=== PATIENT | male | born 1945 | race Caucasian/White ===

== ENCOUNTER 2016-07-27 07:10 | Day surgery (SDC) | payer OTHER ==
[~2016-07-27] VITALS: Ht 170.2 cm; Wt 71.4 kg
[~2016-07-27 07:10] MED LIST: ADV500 IH; ASCO-360 PO; BACL10TA PO; DOCU250C21 PO; ESCI20TA PO; FAMO20 PO; IPRA4AER IH; MONT10TA21 PO; MULT-248 PO; NAPR500T3 PO; PERCT10 PO; PRED10 PO
[2016-07-27] MEDS ORDERED: SODIUM CHLORIDE 0.9% 1,000 ML IV ONE ×2 (07:26→07:30)
[2016-07-27] MEDS ORDERED: MIDAZOLAM HCL 2 MG/2 ML VIAL ONE (07:52)
[2016-07-27] MEDS ORDERED: FentaNYL CITRATE-PF 100 MCG/2 ML VIAL ONE (07:52)
[2016-07-27] MEDS ORDERED: MethylPREDNISolone SOD SUCC 125 MG/2 ML VIAL IVP ONE (09:15)
[2016-07-27] MEDS ORDERED: MethylPREDNISolone SOD SUCC 125 MG/2 ML VIAL ONE (09:47)
[2016-07-27] MEDS ORDERED: LIDOCAINE HCL 4% 50 ML SOLUTION TP ONE (16:30)
[2016-07-27] MEDS ORDERED: ALBUTEROL SULFATE 2.5 MG/0.5 ML NEB SOLUTION NEB ONE (16:30)
[2016-07-27] MEDS ORDERED: LIDOCAINE HCL 2% 30 ML JELLY TP ONE (16:30)
[2016-07-27] MEDS ORDERED: BENZOCAINE 20% 50 MCG/SPRAY 57 GM TP ONE (16:30)
[2016-07-27] MEDS ORDERED: OXYGEN THERAPY IH SCH (20:00)
== END 2016-07-27 11:00 | disposition home or self-care (01) ==
LOC: SURGERY 07:10
PROVIDERS: ATTEND Internal Medicine Critical Care Medicine
DX: J47.9 Bronchiectasis, uncomplicated (principal); R91.1 Solitary pulmonary nodule
CPT/HCPCS: 31623; 31624; 71010; 87015 ×2; 87070; 87101; 87147; 87205; 87220; 88108; 88312; 94640; J2250; J2930; J3010; J7030

== ENCOUNTER 2022-07-20 07:26 | Day surgery (SDC) | payer OTHER ==
[~2022-07-20] VITALS: Ht 182.9 cm; Wt 70.4 kg
[~2022-07-20 07:26] MED LIST changes: +DOCU-378 PO; -DOCU250C21 PO; -ESCI20TA PO; +ESCI20TA87 PO; +MONT-35 PO; -MONT10TA21 PO; +NAPR-1024 PO; -NAPR500T3 PO; +PRED-729 PO; -PRED10 PO
[2022-07-20] MEDS ORDERED: LIDOCAINE 2% 11 ML JELLY TP ONE (07:27)
[2022-07-20] MEDS ORDERED: LIDOCAINE 4% 50 ML SOLUTION TP ONE (07:27)
[2022-07-20] MEDS ORDERED: BENZOCAINE 20% 50 MCG/SPRAY 57 GM TP ONE (07:27)
[2022-07-20] MEDS ORDERED: SODIUM CHLORIDE 0.9% 1,000 ML ONE (07:31)
[2022-07-20] MEDS ORDERED: FentaNYL CITRATE PF 100 MCG/2 ML VIAL ONE (07:59)
[2022-07-20] MEDS ORDERED: MIDAZOLAM HCL 2 MG/2 ML VIAL ONE (07:59)
[2022-07-20] MEDS ORDERED: AMLO-257 PO (08:13)
[2022-07-20] MEDS ORDERED: FLUT16SP NASAL (08:13)
[2022-07-20] MEDS ORDERED: LOSA-381 PO (08:13)
[2022-07-20] MEDS ORDERED: SUCR1TAB PO (08:13)
[2022-07-20] MEDS ORDERED: DOXY75CA5 PO (08:13)
[2022-07-20] MEDS ORDERED: MIRT-89 PO (08:13)
[2022-07-20] MEDS ORDERED: OMEP20 PO (08:13)
[2022-07-20] MEDS ORDERED: SODIUM CHLORIDE 0.9% 1,000 ML IV ONE (09:00)
[2022-07-20] MEDS ORDERED: MethylPREDNISolone SOD SUCC 125 MG/2 ML VIAL IVP ONE (10:15)
== END 2022-07-20 12:10 | disposition home or self-care (01) ==
LOC: SURGERY 07:26
PROVIDERS: ATTEND Internal Medicine Critical Care Medicine
DX: J38.4 Edema of larynx (principal); B37.0 Candidal stomatitis; F17.210 Nicotine dependence, cigarettes, uncomplicated; J44.9 Chronic obstructive pulmonary disease, unspecified; G47.30 Sleep apnea, unspecified
CPT/HCPCS: 31623; 88112; 87206; 87101; 87220; 87070; 31624; 71045; 87015; J3010; J2250; Q9967; J7030; Z7610

== ENCOUNTER 2022-09-12 20:25 | Inpatient (IN) | payer OTHER ==
[~2022-09-12] VITALS: Ht 177.8 cm; Wt 69.0 kg
[~2022-09-12 20:25] MED LIST changes: -ADV500 IH; +AMLO-257 PO; -ASCO-360 PO; -BACL10TA PO; -DOCU-378 PO; +DOXY75CA5 PO; -FAMO20 PO; +FLUT16SP NASAL; +LOSA-381 PO; +MIRT-89 PO; -MULT-248 PO; -NAPR-1024 PO; +OMEP20 PO; -PERCT10 PO; +SUCR1TAB PO
[2022-09-12] MEDS ORDERED: SODIUM CHLORIDE 0.9% 1,000 ML IV ONE (21:30)
[2022-09-12 21:42] VITALS: TEMP 98.7
[2022-09-12] MEDS ORDERED: ALBUTEROL SULFATE 2.5 MG/0.5 ML NEB SOLUTION NEB ONE (21:45)
[2022-09-12] MEDS ORDERED: MethylPREDNISolone SOD SUCC 125 MG/2 ML VIAL IVP ONE (21:45)
[2022-09-12] MEDS ORDERED: IPRATROPIUM BROMIDE 0.5 MG/2.5 ML NEB SOLUTION NEB ONE (21:45)
[2022-09-12 21:50] VITALS: PULSE 63; PULSE 66; RESP 16; O2SAT 97
[2022-09-12 21:56] LABS: BASOPHILS % (AUTO) 0.3 % (0.0-2.0); EOSINOPHILS % (AUTO) 0.1 % (1.0-6.0); HEMATOCRIT 45.1 % (41-53); LYMPHOCYTES # (AUTO) 0.6 K/uL (1.0-4.8); LYMPHOCYTES % (AUTO) 5.6 % (22.0-44.0); MEAN CORPUSCULAR HEMOGLOBIN 32.7 pg (26.0-34.0); MEAN CORPUSCULAR HGB CONC 33.2 G/dL (31.0-37.0); MEAN CORPUSCULAR VOLUME 98 fL (80-100); MONOCYTES # (AUTO) 0.6 K/uL (0.1-1.0); MONOCYTES % (AUTO) 4.9 % (2.0-9.0); PLATELET COUNT (AUTO) 201 K/uL (150-450); RED BLOOD CELL COUNT(AUTO) 4.58 MIL/uL (4.50-5.90); RED CELL DISTRIBUTION WIDTH 14.6 % (11.5-14.5)
[2022-09-12 21:59] LABS: COVID AG,FIA SOURCE NASOPHARYNGEAL
[2022-09-12 22:01] LABS: NEUTROPHILS % (AUTO) 89.1 % (40.0-70.0)
[2022-09-12 22:05] VITALS: PULSE 66; RESP 16; O2SAT 100
[2022-09-12 22:05] LABS: ANION GAP 9 mmol/L (8-16); CALCIUM, TOTAL 9.3 mg/dL (8.8-10.5); CARBON DIOXIDE 25 mmol/L (22-29); CHLORIDE 102 mmol/L (98-107); CREATININE 1.37 mg/dL (0.60-1.30); GLOMERULAR FILTR. RATE CALC 51 mL/min (>60); GLUCOSE,RANDOM 93 mg/dL (70-110); POTASSIUM 5.1 mmol/L (3.5-5.1); SODIUM SERUM 136 mmol/L (136-145)
[2022-09-12 22:10] LABS: PROTHROMBIN TIME 10.9 SEC (9.4-11.6)
[2022-09-12 22:17] LABS: B-TYPE NATRIURETIC PEPTIDE 57 pg/mL (0-100)
[2022-09-12 22:30] LABS: ALANINE AMINOTRANSFERASE 12 U/L (12-78); ALBUMIN 3.6 g/dL (3.4-5.0); ALKALINE PHOSPHATASE 90 U/L (46-116); ASPARTATE AMINOTRANSFERASE 13 U/L (15-37); BILIRUBIN,TOTAL 0.5 mg/dL (0.1-1.0); CREATINE KINASE, TOTAL ONLY 88 U/L (39-308); LIPASE 45 U/L (73-393); TOTAL PROTEIN, SERUM 7.1 g/dL (6.4-8.2)
[2022-09-12] MEDS ORDERED: ACETAMINOPHEN 325 MG TABLET PO PRN (23:00)
[2022-09-12] MEDS ORDERED: ONDANSETRON HCL 4 MG/2 ML VIAL IVP PRN (23:00)
[2022-09-12] MEDS ORDERED: ALBUTEROL SULFATE 2.5 MG/0.5 ML NEB SOLUTION NEB PRN (23:15)
[2022-09-12] MEDS ORDERED: IPRATROPIUM BROMIDE 0.5 MG/2.5 ML NEB SOLUTION NEB PRN (23:15)
[2022-09-12] MEDS: HEPARIN SODIUM,PORCINE 5,000 UNITS/ML VIAL SQ SCH (23:37)
[2022-09-12 23:48] LABS: APPEARANCE,URINE CLEAR (CLEAR); BILIRUBIN,URINE NEGATIVE (NEGATIVE); GLUCOSE, URINE (UA) NEGATIVE (NEGATIVE); KETONES,URINE TRACE mg/dL (NEGATIVE); LEUKOCYTE ESTERASE ,URINE NEGATIVE (NEGATIVE); NITRATE,URINE NEGATIVE (NEGATIVE); OCCULT BLOOD,URINE SMALL (NEGATIVE); PH,URINE 5.5 (5.0-8.0); PROTEIN,URINE NEGATIVE (NEGATIVE); SPECIFIC GRAVITIY, URINE 1.012 (1.003-1.030); UROBILINOGEN,URINE <=1.0 mg/dL (<=1.0)
[2022-09-12 23:55] LABS: AMPHET/METH SCREEN,URINE NEGATIVE (NEGATIVE); BARBITURATE SCREEN, URINE NEGATIVE (NEGATIVE); BENZODIAZEPINES SCREEN,URINE NEGATIVE (NEGATIVE); CANNABINOID SCREEN,URINE POSITIVE (NEGATIVE); COCAINE SCREEN,URINE POSITIVE (NEGATIVE); METHADONE SCREEN, URINE NEGATIVE (NEGATIVE); OPIATE SCREEN,URINE NEGATIVE (NEGATIVE); PHENCYCLIDINE SCREEN,URINE NEGATIVE (NEGATIVE)
[2022-09-13 00:01] LABS: WBC,URINE 0-2 /HPF (0-5)
[2022-09-13 00:02] LABS: BACTERIA,URINE None Seen /HPF (None Seen); SQUAMOUS EPITHELIAL CELL,UR Few /LPF (None Seen)
[2022-09-13] MEDS ORDERED: LORazepam 2 MG TABLET PO PRN (04:00)
[2022-09-13] MEDS: 1: MAGNESIUM SULFATE 2 GM, MVI, ADULT NO.1 WITH VIT K 10 ML, THIAMINE 100 MG, FOLIC ACID IV SCH ×5 (04:23)
[2022-09-13] MEDS: HEPARIN SODIUM,PORCINE 5,000 UNITS/ML VIAL SQ SCH (07:54)
[2022-09-13] MEDS ORDERED: DOCUSATE SODIUM 100 MG CAPSULE PO SCH (09:00)
[2022-09-13] MEDS ORDERED: NICOTINE 21 MG/24 HOUR PATCH TD SCH (12:15)
[2022-09-13 14:30] VITALS: BP 130/68; PULSE 79; RESP 16
[2022-09-14] MEDS ORDERED: LORazepam 2 MG TABLET PO PRN (07:00)
[2022-09-14] MEDS ORDERED: LORazepam 2 MG TABLET PO SCH (09:00)
[2022-09-16] MEDS ORDERED: LORazepam 1 MG TABLET PO PRN (07:00)
[2022-09-16] MEDS ORDERED: LORazepam 1 MG TABLET PO SCH (09:00)
[2022-09-17] MEDS ORDERED: LORazepam 1 MG TABLET PO PRN (07:00)
== END 2022-09-13 16:33 | disposition left against medical advice (07) | DRG 315 ==
LOC: EMS 20:27 → ICUN 09-13 02:00
PROVIDERS: ADMIT Internal Medicine; ATTEND Internal Medicine
DX: I95.9 Hypotension, unspecified (principal); F10.239 Alcohol dependence with withdrawal, unspecified; F14.13 Cocaine abuse, unspecified with withdrawal; Z53.21 Procedure and treatment not carried out due to patient leaving prior to being seen by health care provider; Z20.822 Contact with and (suspected) exposure to COVID-19; E86.0 Dehydration; I10 Essential (primary) hypertension; F41.9 Anxiety disorder, unspecified; R91.1 Solitary pulmonary nodule; Z79.899 Other long term (current) drug therapy; Z87.891 Personal history of nicotine dependence
CPT/HCPCS: 71045; 80053; 80307; 81001; 82550; 83690; 83880; 84484; 85025; 85610; 85730; 87040; 93005; 94640; 99285; G0378; G0480; J1644; J2930; J3411; J3475; J3490; J7030; 36415-L1; 36415-TC; J7613